=== PATIENT | female | born 1995 ===

== ENCOUNTER 2023-09-14 08:25 | Day surgery (SDC) | payer OTHER ==
[~2023-09-14] VITALS: Ht 162.6 cm; Wt 42.8 kg
[~2023-09-14 08:25] MED LIST: Lactated Ringer's 1,000 ML IV ONE; OMEP20ER PO; propofoL 50 ML IV ONE
[2023-09-14] MEDS ORDERED: ERGO400 (09:00)
[2023-09-14] MEDS ORDERED: Lactated Ringer's 1,000 ML IV ONE (09:15)
[2023-09-14 11:08] VITALS: BP 116/82
== END 2023-09-14 11:15 | disposition home or self-care (01) ==
LOC: ORSCSDS 08:25
PROVIDERS: Internal Medicine Gastroenterology
PROC: 0DB98ZX Excision of Duodenum, Via Natural or Artificial Opening Endoscopic, Diagnostic (ICD-10-PCS; principal; 2023-09-14 09:30)
PROC: 0DB68ZX Excision of Stomach, Via Natural or Artificial Opening Endoscopic, Diagnostic (ICD-10-PCS; principal; 2023-09-14 09:30)
DX: R10.13 Epigastric pain (principal); R14.2 Eructation; K31.4 Gastric diverticulum; Z79.899 Other long term (current) drug therapy
CPT/HCPCS: 88305; 88342; J2704; J7120